=== PATIENT | male | born 1980 | race Caucasian/White ===

== ENCOUNTER 2020-02-12 13:45 | Emergency (ER) | payer OTHER ==
[~2020-02-12] VITALS: Ht 167.6 cm; Wt 81.7 kg
[2020-02-12] MEDS ORDERED: OMEPRAZOLE20 MG PO (13:54)
== END 2020-02-12 15:44 | disposition home or self-care (01) ==
LOC: ED 13:45
DX: S02.2XXA Fracture of nasal bones, initial encounter for closed fracture (principal); R55 Syncope and collapse; Z87.891 Personal history of nicotine dependence; Z88.2 Allergy status to sulfonamides; Y04.2XXA Assault by strike against or bumped into by another person, initial encounter; Z79.899 Other long term (current) drug therapy
CPT/HCPCS: 70450; 99284-25

== ENCOUNTER 2020-03-06 08:06 | Day surgery (SDC) | payer OTHER ==
[~2020-03-06] VITALS: Ht 167.6 cm; Wt 81.7 kg
--- NOTE | ~2020-03-06 | OR ---
[facility] [address] [place], [place] [address] Draft DATE OF OPERATION: 03/06/2020 SURGEON: Andrew Verdugo MD PREOPERATIVE DIAGNOSIS: Nasal septal fracture. POSTOPERATIVE DIAGNOSIS: Nasal septal fracture. PROCEDURES: Septoplasty, closed reduction of nasal fracture. ANESTHESIA: General LMA; Abdullahi BUSTAMANTE. PREOPERATIVE HISTORY: Mr. Rosario is a 40-year-old inmate, who suffered a nasal septal fracture quite severe about 3 weeks ago. He is being taken to the operating room for the above-mentioned procedures. PROCEDURE AND FINDINGS: After informed consent, the patient was taken to the operating room, placed in supine position, where general LMA anesthesia was induced. The patient and procedure were verified. The patient received preoperative intranasal oxymetazoline intravenous Ancef. The preop CT was viewed throughout. The external exam showed an obvious nasal bone fracture with nasal dorsum deviated to the right side, severely digital pressure on the right nasal bone, reduced that bone and elevator under the left nasal bone reduced that bone also and the dorsum was midline after the procedure. The septum was severely fractured, deviated mainly to the right side appeared to have a spur on the left, which was old. The cartilage was exposed on the spur on the left inferiorly and this was all result deformed, deviated obstructive cartilage, it was excised with the Jonh. The septum was medialized with a speculum, the airway was improved. Septum midline. Minimal bleeding stopped afterwards. Packing was placed. A Landry pack coated with Neosporin on the left under the left nasal bone supporting it into its normal anatomic position. Trimmed Merocel equal amount each side, coated with Neosporin, placed, and tied anteriorly over a pad. The pharynx was suctioned clear of blood and secretions. The patient was then awakened, extubated, and transported to recovery room in good condition. No complications. PATIENT NAME: PETRA ROSARIO OPERATIVE REPORT DATE OF : 82 REPORT #: [id number] PHYSICIAN: ANDREW VERDUGO MD PCP: FROY ARCOS MD REPORT IS CONFIDENTIAL AND NOT TO BE RELEASED WITHOUT AUTHORIZATION [facility] [address] [place] [address] [place] BLOOD LOSS: Minimal. SPECIMEN: No specimen. DRAINS: No drains. PACKING: Two pieces of Merocel on left and one on the right. Andrew Verdugo MD GC/MODL /[id number] Copies: ~ PATIENT NAME: PETRA ROSARIO OPERATIVE REPORT DATE OF : 82 REPORT #: [id number] PHYSICIAN: ANDREW VERDUGO MD PCP: FROY ARCOS MD REPORT IS CONFIDENTIAL AND NOT TO BE RELEASED WITHOUT AUTHORIZATION
[~2020-03-06 08:06] MED LIST: OMEPRAZOLE20 MG PO
--- NOTE | 2020-03-06 10:07 | NUR ---
03/06/20 1007 Jazmine Olsen 1003 PATIENT ARRIVES TO PACU UNRESPONSIVE TO PAIN. ORAL AIRWAY IN PLACE. RESP EVEN AND UNLABORED, MASK AT 6 LITERS. OFFICERS X2 AT BEDSIDE.
--- NOTE | 2020-03-06 10:45 | NUR ---
PT IS BACK TO DS FROM PACU. HE IS BACK TO HIS BASELINE. HE IS REPORTING PAIN 4/10, HE WOULD LIKE SOMETHING FOR TH PAIN BEFORE IT GETS WORSE. HE IS TOLERTING WATER AND CRACKERS. CALL LIGHT WITHIN REACH. [employer] [facility] OFFICERS AT BEDSIDE. NO ADDITIONAL NEEDS AT THIS TIME.
[2020-03-06] MEDS ORDERED: NORCO 5-325 TA1 EACH PO (10:54)
[2020-03-06] MEDS ORDERED: KEFLEX500 MG PO (10:55)
--- NOTE | 2020-03-06 11:56 | NUR ---
LE 1145: DISCHARGE INSTRUCTIONS GIVEN AND PATIENT VERBALIZES UNDERSTANDING. CALL REPORT GIVEN TO ELSI ROMERO RN AND HER QUESTIONS ARE ANSWERED. PATIENT IS DRESSING AND TRANSFERS HIMSELF TO THE WHEELCHAIR AND TOLERATES THAT WELL.
--- NOTE | 2020-03-06 12:10 | NUR ---
LE 1105: PATIENT ARRIVED TO DEPARTMENT AMBULATORY. PLACED IN ROOM 5 FOR ROUTINE DRESSING CHANGE. PATIENT DENIES ISSUES SINCE LAST DRESSING CHANGE. PATIENT REPORTS NO ISSUES WITH CHANGING THE DRESSING AT HOME. DRESSING CHANGE IS DONE PER ORDER AND PATIENT TOLERATES THAT WELL. BASE OF WOUND IS NO GRANULATION TISSUE WITH A SMALL PALE/CREAM AREA NOTED AT 6 O'CLOCK. PATIENT IS DISCHARGED HOME AMBULATORY TO RETURN TOMORROW FOR NEXT DRESSING CHANGE.
== END 2020-03-06 11:50 | disposition home or self-care (01) ==
LOC: OPS 08:06 → DS 08:09 → OPS 08:15
PROVIDERS: Otolaryngology
PROC: 09BM0ZZ Excision of Nasal Septum, Open Approach (ICD-10-PCS; principal; 2020-03-06 09:15)
DX: S02.2XXA Fracture of nasal bones, initial encounter for closed fracture (principal); K21.9 Gastro-esophageal reflux disease without esophagitis; Z79.899 Other long term (current) drug therapy; Y04.2XXA Assault by strike against or bumped into by another person, initial encounter
CPT/HCPCS: 00160; J0330; J0690; J1100; J1885; J2250; J2405; J2704; J2765; J3010; J7121